=== PATIENT | female | born 1990 | race Caucasian/White ===

== ENCOUNTER 2023-05-19 11:42 | Outpatient (CLI) | payer OTHER, SELFPAY ==
--- NOTE | ~2023-05-19 | MMUS_ITS ---
EXAMINATION: MM diagnostic ramin BI w ramana, US breast BI complete HISTORY: Bilateral nipple discharge. Mother had breast cancer at age 50. TECHNIQUE: ML, MLO and CC 3-D tomosynthesis images of both breasts were performed and synthetic 2-D i mages were generated. CAD analysis was submitted and interpreted. High resolution complete bilateral breast ultrasound examination including all 4 quadrants and subareolar areas was performed. COMPARISON: None BREAST PARENCHYMAL COMPOSITION: The breasts are extremely dense, which lowers the sensitivity of mamm ography. FINDINGS: MAMMOGRAPHIC FINDINGS: There is an approximately 6 x 7.5 mm circumscribed mass in the posterior upper outer right breast, wi th mild calcification. No suspicious mass, architectural distortion, malignant calcification, skin thickening or retraction of either breast is noted otherwise. ULTRASOUND: No suspicious mass or shadowing of either breast is detected. Left breast: 6:00 near nipple: 2 x 4 x 4.7 mm simple cyst Right breast: 10:00 5 cm from nipple: Parallel circumscribed lymph node measuring 2.5 x 9.1 x 7.5 mm, with relative ly uniform thickness and echogenicity of the cortex, benign in appearance. 10:00 1 cm from nipple: 2.2 x 4.6 x 4.2 mm probable cyst IMPRESSION: 1. Benign findings; no mammographic evidence of malignancy 2. Routine annual mammographic screening beginning at age 40 is recommended unless there are earlier symptoms or physical findings. BI-RADS Category 2: Benign finding(s). Reviewed, dictated and finalized at location A. IMPRESSION: 1. Benign findings; no mammographic evidence of malignancy 2. Routine annual mammographic screening beginning at age 40 is recommended unl ess there are earlier symptoms or physical findings. BI-RADS Category 2: Benign finding(s).
== END 2023-05-19 11:43 | disposition home or self-care (01) ==
DX: N64.52 Nipple discharge (principal)
CPT/HCPCS: 76641; 77062; 77066; G0279